=== PATIENT | male | born 1995 | race Caucasian/White ===

== ENCOUNTER 2025-07-13 13:07 | Emergency (ER) | payer SELFPAY ==
[2025-07-13 13:08] VITALS: BMI 24.3
[2025-07-13 13:17] VITALS: BP 122/83; PULSE 107; RESP 18; TEMP 37.1; O2SAT 98
--- NOTE | 2025-07-13 13:52 | EDNOTE_ITS ---
ED Animal Bite RME/HPI General Chief Complaint: Animal Bite Stated Complaint: DOG BITE TO RIGHT HAND TODAY Time Seen by Provider: 07/13/25 13:12 Arrival date/time: 07/13/25 13:07 29-year-old male presents to the Emergency Department with complaints of dog bite to the right hand patient reports that he was his 2 dogs that were fighting and one of the dogs accidentally bit him on the right hand Limitations: no limitations Related Data Previous Rx's ?Medication ?Instructions ?Recorded omeprazole 20 mg tablet,delayed 20 mg PO QDAY #30 tabs 06/28/20 release sucralfate 100 mg/mL oral 10 ml PO BID #200 mL 0 suspension (Carafate) omeprazole 20 mg tablet,delayed 20 mg PO BID #30 tabs 09/30/20 release ondansetron 4 mg disintegrating 4 mg PO Q8H PRN nausea and 06/19/23 tablet vomiting #15 tabs amoxicillin 875 mg-potassium 1 tab PO BID 7 days #14 t abs 07/13/25 clavulanate 125 mg tablet bacitracin 500 unit/gram topical 1 applic topical TID 7 days #28.4 07/13/25 ointment grams ibuprofen 800 mg tablet 800 mg PO TID PRN pain #30 t abs 07/13/25 Allergies Allergy/AdvReac Type Severity Reaction Status Date / Time No Known Allergies Allergy Verified 07/13/25 13:11 Review of Systems Review of Systems Systems Reviewed: All systems reviewed, normal except as documented Constitutional Constitutional: Reports system reviewed and no additional complaints, except as documented, Denies fever(s) and Denies headache(s) Eyes Eyes: Reports system reviewed and no additional complaints, except as documented and Denies blurry vision ENT Ears, Nose, Mouth, and Throat: Reports system reviewed and no additional complaints, except as documented, Denies headache(s), Denies nasal congestion and Denies nasal discharge Cardiovascular Cardiovascular: Reports system reviewed and no additional complaints, except as documented, Denies chest pain and Denies dyspnea Respiratory Respiratory: Reports system reviewed and no additional complaints, except as documented, Denies chest congestion, Denies cough and Denies dyspnea Gastrointestinal Gastrointestinal: Reports system reviewed and no additional complaints, except as documented and Denies abdominal pain Integumentary/Breasts Skin/Breast: Reports system reviewed and no additional complaints, except as documented, Denies rash and Reports wounds (Superficial dog bites right hand) Neurologic Neurologic: Reports system reviewed and no additional complaints, except as documented, Reports as per HPI and Denies headache(s) Past Medical History Past Medical History CARDIAC: Negative Congestive Heart Failure RESPIRATORY: Negative Chronic Obstructive Pulmonary Disease (COPD) GENITOURINARY: Negative Renal Disease ENDOCRINE: Negative Diabetes Mellitus Type 1 or Diabetes Mellitus Type 2 Social History SMOKING STATUS: Current every day smoker SUBSTANCE USE: marijuana ED Exam General Limitations: Present no limitations General appearance: Present alert and in no apparent distress Head Head exam: Present atraumatic Eye Eye exam: Present normal appearance, PERRL and EOMI ENT ENT exam: Present normal exam, normal oropharynx and mucous membranes moist Neck Neck exam: Present normal inspection, full ROM and trachea midline Chest Chest inspection: Present normal inspection and symmetric chest wall rise Respiratory Respiratory exam: Present normal lung sounds bilaterally Cardiovascular Cardiovascular exam: Present regular rate, normal rhythm and normal heart sounds Abdominal Exam Abdominal exam: Present soft and normal bowel sounds Extremities Exam Extremities exam: Present full ROM, tenderness, normal capillary refill and other (Dog bites hand right no evidence of tendon or ligamentous injury) Back Exam Back exam: Present normal inspection and full ROM Neurological Exam Neurological exam: Present alert, oriented X3 and CN II-XII intact Psychiatric Psychiatric exam: Present normal affect and normal mood Skin Skin exam: Present warm, dry and other (Superficial dog bites right hand) Course Quality Measures none Orders Category Date Time Status Wound Care NOW Care 07/13/25 13:18 Active Amoxicillin/Pot Clav 875 [Augmentin 875] Med 07/13/25 13:18 Discontinued 1 tab PO X1 ONE Ibuprofen Tab [Motrin Tab] Med 07/13/25 13:18 Discontinued 800 mg PO X1 ONE TET,DIP/PERT AC (Adult)-Tdap [Boostrix Adult (Tdap) Med 07/13/25 13:18 Discontinued Vacc] 0.5 ml IMI .ONCE ONE Vital Signs Vital signs: Vital Signs Temperature 98.7 F 07/13/25 13:17 Pulse Rate 107 H 07/13/25 13:17 Respiratory Rate 18 07/13/25 13:17 Blood Pressure 122/83 07/13/25 13:17 Pulse Oximetry (%) 98 07/13/25 13:17 Oxygen Delivery Method Room Air 07/13/25 13:17 O2 saturation 98% room air within normal limits Animal Bite MDM Narrative MDM Narrative:: 29-year-old male presents to the Emergency Department with complaints of dog bite to the right hand patient reports that he was his 2 dogs that were fighting and one of the dogs accidentally bit him on the right hand On exam patient well-appearing does not appear ill or toxic On exam patient has multiple small puncture wounds to the right hand patient has full range of motion of all digits No repair necessary at this time Tetanus updated patient wounds are cleansed dressings applied first dose of antibiotics given here Patient discharged home in no distress to follow-up with primary care doctor in the next 24 to 48 hours and for any worsening symptoms to return to the ER immediately Patient data External records reviewed:: [facility] previous records Clinical information provided by:: patient Social determinants that could affect healthcare access:: none Patient has the following chronic illnesses:: None How is presenting disease/condition affected by chronic disease/condition?: no chronic disease Evaluation data The following diagnostics were reviewed and interpreted by me:: other (specify) Lab and/or radiology exams considered but not ordered:: Considered not indicated Interpretation Summary: N/A Medications / Prescriptions Medications or Prescriptions considered but not ordered:: Given Medication administrations:: Medication Administration History Discontinued Medications Amoxicillin/Clavulanate Potassium (Amoxicillin/Pot Clav 875 Tablet) 1 tab PO X1 ONE Stop: 07/13/25 13:19 Diphtheria/Tetanus/Acell Pertussis (Diphth,Pertuss(Acell),Tet Vac 0.5 Ml Syr- Adult) 0.5 ml IMi .ONCE ONE Stop: 07/13/25 13:19 Ibuprofen (Ibuprofen Tab 400 Mg Tablet) 800 mg PO X1 ONE Stop: 07/13/25 13:19 Given Consultations Consultation(s) initiated? (list below): No Diagnosis Differential diagnosis animal bite: bite by animal and dog bite Most likely diagnosis given after review of the tests above:: Bite by dog Admission Indicated Admission indicated?: not indicated Admission Request Was there a request for admission?: No Disposition Plan Disposition Plan: Discharge Discharge Attestation Discharge Attestation: The patient and all family members were given an opportunity to ask questions and understood the discharge instructions. Discharge instructions specifically effects, indications for sooner follow up or return to the emergency department, and the expected course of current diagnosis. Patient condition: Stable Discharge Plan Plan Patient Disposition: HOME (Self Care) Discharge Disposition comment: Stable Prescriptions/Referrals Prescriptions/Med Rec: New ibuprofen 800 mg tablet 800 mg PO TID PRN (Reason: pain) Qty: 30 0RF bacitracin 500 unit/gram ointment 1 applic topical TID 7 Days Qty: 28.4 0RF amoxicillin-pot clavulanate 875-125 mg tablet 1 tab PO BID 7 Days Qty: 14 0RF No Action sucralfate [Carafate] 100 mg/mL suspension 10 ml PO BID Qty: 200 0RF omeprazole 20 mg tablet,delayed release (DR/EC) 20 mg PO QDAY Qty: 30 0RF omeprazole 20 mg tablet,delayed release (DR/EC) 20 mg PO BID Qty: 30 0RF ondansetron 4 mg tablet,disintegrating 4 mg PO Q8H PRN (Reason: nausea and vomiting) Qty: 15 0RF Referrals: No Primary/Family,Physician [Primary Care Provider] - In 1 week Problem List Clinical Impression: Dog bite Patient/Caregiver Discharge Instructions Education Materials: ED Dog Bite Additional Instructions: Please follow up with your primary care doctor in the next 24-48hrs for any worsening symptoms return here immediately Print Language: Armenian Stand Alone Forms: Jackelin Award Info., Patient Portal Info Letter Vaccines Vaccines Given During Stay: TDaP PA/SLIP INJECTOR AND APPLICATOR Supervising Physician PA/SLIP INJECTOR AND APPLICATOR Supervising Physician: Dr. Davis
[2025-07-13] MEDS: AMOXICILLIN/POT CLAV 875 TABLET 1 TAB PO (14:25)
[2025-07-13] MEDS: IBUPROFEN TAB 400 MG TABLET 800 MG PO (14:26)
[2025-07-13] MEDS: DIPHTH,PERTUSS(ACELL),TET VAC 0.5 ML SYR- ADULT IMi (14:28)
== END 2025-07-13 15:13 | disposition home or self-care (01) ==
PROVIDERS: Emergency Provider Emergency Medicine
DX: S61.431A Puncture wound without foreign body of right hand, initial encounter (principal); W54.0XXA Bitten by dog, initial encounter; Z23 Encounter for immunization
CPT/HCPCS: 90471; 90715; 99281; A9270